=== PATIENT | male | born 1935 ===

== ENCOUNTER 2020-02-11 01:05 | Day surgery (SDC) | payer MEDICARE | END 2020-02-11 23:22 | disposition home or self-care (01) | LOC: WOUND 01:05 | DX: L97.222 Non-pressure chronic ulcer of left calf with fat layer exposed (principal); L58.9 Radiodermatitis, unspecified; I87.322 Chronic venous hypertension (idiopathic) with inflammation of left lower extremity; E78.5 Hyperlipidemia, unspecified; I25.10 Atherosclerotic heart disease of native coronary artery without angina pectoris; I11.0 Hypertensive heart disease with heart failure; I50.9 Heart failure, unspecified | CPT/HCPCS: G0463 ==

== ENCOUNTER 2020-03-06 00:05 | Day surgery (SDC) | payer MEDICARE | END 2020-03-06 22:50 | disposition home or self-care (01) | LOC: HBO 00:05 | DX: L58.9 Radiodermatitis, unspecified (principal); L59.8 Other specified disorders of the skin and subcutaneous tissue related to radiation; L97.222 Non-pressure chronic ulcer of left calf with fat layer exposed; I87.322 Chronic venous hypertension (idiopathic) with inflammation of left lower extremity | CPT/HCPCS: G0277 ==

== ENCOUNTER 2020-03-06 00:13 | Day surgery (SDC) | payer MEDICARE | END 2020-03-06 22:50 | disposition home or self-care (01) | LOC: WOUND 00:13 | DX: L97.222 Non-pressure chronic ulcer of left calf with fat layer exposed (principal); L59.8 Other specified disorders of the skin and subcutaneous tissue related to radiation; L58.9 Radiodermatitis, unspecified; I87.322 Chronic venous hypertension (idiopathic) with inflammation of left lower extremity ==

== ENCOUNTER 2020-03-09 00:22 | Day surgery (SDC) | payer MEDICARE | END 2020-03-09 23:01 | disposition home or self-care (01) | LOC: HBO 00:22 | DX: L59.8 Other specified disorders of the skin and subcutaneous tissue related to radiation (principal); L97.222 Non-pressure chronic ulcer of left calf with fat layer exposed; L58.9 Radiodermatitis, unspecified; I87.322 Chronic venous hypertension (idiopathic) with inflammation of left lower extremity | CPT/HCPCS: G0277 ==

== ENCOUNTER 2020-03-10 00:48 | Day surgery (SDC) | payer MEDICARE | END 2020-03-10 22:53 | disposition home or self-care (01) | LOC: HBO 00:48 | DX: L59.8 Other specified disorders of the skin and subcutaneous tissue related to radiation (principal); L97.222 Non-pressure chronic ulcer of left calf with fat layer exposed; L58.9 Radiodermatitis, unspecified; I87.322 Chronic venous hypertension (idiopathic) with inflammation of left lower extremity | CPT/HCPCS: G0277 ==

== ENCOUNTER 2020-03-17 00:12 | Day surgery (SDC) | payer MEDICARE | END 2020-03-17 23:12 | disposition home or self-care (01) | LOC: HBO 00:12 | DX: L59.8 Other specified disorders of the skin and subcutaneous tissue related to radiation (principal); L97.222 Non-pressure chronic ulcer of left calf with fat layer exposed; L58.9 Radiodermatitis, unspecified; I87.322 Chronic venous hypertension (idiopathic) with inflammation of left lower extremity | CPT/HCPCS: G0277 ==

== ENCOUNTER 2020-03-17 00:15 | Day surgery (SDC) | payer MEDICARE | END 2020-03-17 23:12 | disposition home or self-care (01) | LOC: WOUND 00:15 | DX: L59.8 Other specified disorders of the skin and subcutaneous tissue related to radiation (principal); L97.222 Non-pressure chronic ulcer of left calf with fat layer exposed; L58.9 Radiodermatitis, unspecified; I87.322 Chronic venous hypertension (idiopathic) with inflammation of left lower extremity; L97.922 Non-pressure chronic ulcer of unspecified part of left lower leg with fat layer exposed; I11.0 Hypertensive heart disease with heart failure; I50.9 Heart failure, unspecified; E78.5 Hyperlipidemia, unspecified ==

== ENCOUNTER 2020-03-18 00:33 | Day surgery (SDC) | payer MEDICARE | END 2020-03-18 23:39 | disposition home or self-care (01) | LOC: HBO 00:33 → WOUND 10:28 → HBO 10:29 | DX: L59.8 Other specified disorders of the skin and subcutaneous tissue related to radiation (principal); L97.222 Non-pressure chronic ulcer of left calf with fat layer exposed; L58.9 Radiodermatitis, unspecified; I87.322 Chronic venous hypertension (idiopathic) with inflammation of left lower extremity; L97.922 Non-pressure chronic ulcer of unspecified part of left lower leg with fat layer exposed | CPT/HCPCS: G0277 ==

== ENCOUNTER 2020-03-19 00:23 | Day surgery (SDC) | payer MEDICARE | END 2020-03-19 22:45 | disposition home or self-care (01) | LOC: HBO 00:23 | DX: L59.8 Other specified disorders of the skin and subcutaneous tissue related to radiation (principal); L97.222 Non-pressure chronic ulcer of left calf with fat layer exposed; L58.9 Radiodermatitis, unspecified; I87.322 Chronic venous hypertension (idiopathic) with inflammation of left lower extremity | CPT/HCPCS: G0277 ==

== ENCOUNTER 2020-03-20 00:15 | Day surgery (SDC) | payer MEDICARE | END 2020-03-20 22:54 | disposition home or self-care (01) | LOC: HBO 00:15 | DX: L59.8 Other specified disorders of the skin and subcutaneous tissue related to radiation (principal); L97.222 Non-pressure chronic ulcer of left calf with fat layer exposed; L58.9 Radiodermatitis, unspecified; I87.322 Chronic venous hypertension (idiopathic) with inflammation of left lower extremity | CPT/HCPCS: G0277 ==

== ENCOUNTER 2020-03-23 00:20 | Day surgery (SDC) | payer MEDICARE | END 2020-03-23 22:42 | disposition home or self-care (01) | LOC: HBO 00:20 | DX: L59.8 Other specified disorders of the skin and subcutaneous tissue related to radiation (principal); L97.222 Non-pressure chronic ulcer of left calf with fat layer exposed; I87.322 Chronic venous hypertension (idiopathic) with inflammation of left lower extremity; L97.922 Non-pressure chronic ulcer of unspecified part of left lower leg with fat layer exposed; L58.9 Radiodermatitis, unspecified | CPT/HCPCS: G0277 ==

== ENCOUNTER 2020-03-24 01:48 | Day surgery (SDC) | payer MEDICARE | END 2020-03-24 22:39 | disposition home or self-care (01) | LOC: HBO 01:48 | DX: L59.8 Other specified disorders of the skin and subcutaneous tissue related to radiation (principal); L97.222 Non-pressure chronic ulcer of left calf with fat layer exposed; L58.9 Radiodermatitis, unspecified; I87.322 Chronic venous hypertension (idiopathic) with inflammation of left lower extremity; L97.922 Non-pressure chronic ulcer of unspecified part of left lower leg with fat layer exposed | CPT/HCPCS: G0277 ==

== ENCOUNTER 2020-03-24 01:50 | Day surgery (SDC) | payer MEDICARE | END 2020-03-24 22:39 | disposition home or self-care (01) | LOC: WOUND 01:50 | DX: L59.8 Other specified disorders of the skin and subcutaneous tissue related to radiation (principal); L97.222 Non-pressure chronic ulcer of left calf with fat layer exposed; L58.9 Radiodermatitis, unspecified; I87.322 Chronic venous hypertension (idiopathic) with inflammation of left lower extremity; L97.922 Non-pressure chronic ulcer of unspecified part of left lower leg with fat layer exposed; I11.0 Hypertensive heart disease with heart failure; I50.9 Heart failure, unspecified; E78.5 Hyperlipidemia, unspecified ==

== ENCOUNTER 2020-03-25 00:38 | Day surgery (SDC) | payer MEDICARE | END 2020-03-25 22:44 | disposition home or self-care (01) | LOC: HBO 00:38 | DX: L59.8 Other specified disorders of the skin and subcutaneous tissue related to radiation (principal); L97.222 Non-pressure chronic ulcer of left calf with fat layer exposed; L58.9 Radiodermatitis, unspecified; I87.322 Chronic venous hypertension (idiopathic) with inflammation of left lower extremity; L97.922 Non-pressure chronic ulcer of unspecified part of left lower leg with fat layer exposed | CPT/HCPCS: G0277 ==

== ENCOUNTER 2020-03-26 00:11 | Day surgery (SDC) | payer MEDICARE | END 2020-03-26 23:12 | disposition home or self-care (01) | LOC: HBO 00:11 | DX: L59.8 Other specified disorders of the skin and subcutaneous tissue related to radiation (principal); L97.222 Non-pressure chronic ulcer of left calf with fat layer exposed; L58.9 Radiodermatitis, unspecified; I87.322 Chronic venous hypertension (idiopathic) with inflammation of left lower extremity; L97.922 Non-pressure chronic ulcer of unspecified part of left lower leg with fat layer exposed | CPT/HCPCS: G0277 ==

== ENCOUNTER 2020-03-27 00:13 | Day surgery (SDC) | payer MEDICARE | END 2020-03-27 22:43 | disposition home or self-care (01) | LOC: HBO 00:13 | DX: L59.8 Other specified disorders of the skin and subcutaneous tissue related to radiation (principal); L97.222 Non-pressure chronic ulcer of left calf with fat layer exposed; L58.9 Radiodermatitis, unspecified; I87.322 Chronic venous hypertension (idiopathic) with inflammation of left lower extremity; L97.922 Non-pressure chronic ulcer of unspecified part of left lower leg with fat layer exposed | CPT/HCPCS: G0277 ==

== ENCOUNTER 2020-03-31 14:00 | Day surgery (SDC) | payer MEDICARE | END 2020-04-01 22:41 | disposition home or self-care (01) | LOC: HBO 14:00 | DX: L59.8 Other specified disorders of the skin and subcutaneous tissue related to radiation (principal); L97.222 Non-pressure chronic ulcer of left calf with fat layer exposed; L58.9 Radiodermatitis, unspecified; I87.322 Chronic venous hypertension (idiopathic) with inflammation of left lower extremity; L97.922 Non-pressure chronic ulcer of unspecified part of left lower leg with fat layer exposed | CPT/HCPCS: G0277 ==

== ENCOUNTER 2020-04-02 00:19 | Day surgery (SDC) | payer MEDICARE | END 2020-04-02 22:38 | disposition home or self-care (01) | LOC: HBO 00:19 → WOUND 10:31 → HBO 10:34 | DX: L59.8 Other specified disorders of the skin and subcutaneous tissue related to radiation (principal); L97.222 Non-pressure chronic ulcer of left calf with fat layer exposed; L58.9 Radiodermatitis, unspecified; I87.322 Chronic venous hypertension (idiopathic) with inflammation of left lower extremity; L97.922 Non-pressure chronic ulcer of unspecified part of left lower leg with fat layer exposed | CPT/HCPCS: G0277 ==

== ENCOUNTER 2020-04-03 00:08 | Day surgery (SDC) | payer MEDICARE | END 2020-04-03 22:42 | disposition home or self-care (01) | LOC: WOUND 00:08 | DX: L59.8 Other specified disorders of the skin and subcutaneous tissue related to radiation (principal); L97.222 Non-pressure chronic ulcer of left calf with fat layer exposed; L58.9 Radiodermatitis, unspecified; I87.322 Chronic venous hypertension (idiopathic) with inflammation of left lower extremity; L97.922 Non-pressure chronic ulcer of unspecified part of left lower leg with fat layer exposed; I11.0 Hypertensive heart disease with heart failure; I50.9 Heart failure, unspecified; E78.5 Hyperlipidemia, unspecified; Z79.899 Other long term (current) drug therapy | CPT/HCPCS: G0463 ==

== ENCOUNTER 2020-04-03 00:24 | Day surgery (SDC) | payer MEDICARE | END 2020-04-03 22:42 | disposition home or self-care (01) | LOC: HBO 00:24 | DX: L59.8 Other specified disorders of the skin and subcutaneous tissue related to radiation (principal); L97.222 Non-pressure chronic ulcer of left calf with fat layer exposed; L97.922 Non-pressure chronic ulcer of unspecified part of left lower leg with fat layer exposed; L58.9 Radiodermatitis, unspecified; I87.322 Chronic venous hypertension (idiopathic) with inflammation of left lower extremity | CPT/HCPCS: G0277 ==

== ENCOUNTER 2020-04-06 00:31 | Day surgery (SDC) | payer MEDICARE | END 2020-04-06 22:53 | disposition home or self-care (01) | LOC: HBO 00:31 | DX: L59.8 Other specified disorders of the skin and subcutaneous tissue related to radiation (principal); L97.222 Non-pressure chronic ulcer of left calf with fat layer exposed; L58.9 Radiodermatitis, unspecified; I87.322 Chronic venous hypertension (idiopathic) with inflammation of left lower extremity; L97.922 Non-pressure chronic ulcer of unspecified part of left lower leg with fat layer exposed | CPT/HCPCS: G0277 ==

== ENCOUNTER 2020-04-07 00:17 | Day surgery (SDC) | payer MEDICARE | END 2020-04-07 22:45 | disposition home or self-care (01) | LOC: HBO 00:17 → WOUND 11:58 → HBO 11:59 | DX: L59.8 Other specified disorders of the skin and subcutaneous tissue related to radiation (principal); L97.222 Non-pressure chronic ulcer of left calf with fat layer exposed; L58.9 Radiodermatitis, unspecified; I87.322 Chronic venous hypertension (idiopathic) with inflammation of left lower extremity; L97.922 Non-pressure chronic ulcer of unspecified part of left lower leg with fat layer exposed | CPT/HCPCS: G0277 ==

== ENCOUNTER 2020-04-10 01:00 | Day surgery (SDC) | payer MEDICARE | END 2020-04-10 23:06 | disposition home or self-care (01) | LOC: HBO 01:00 → WOUND 09:32 → HBO 09:34 | DX: L59.8 Other specified disorders of the skin and subcutaneous tissue related to radiation (principal); L97.222 Non-pressure chronic ulcer of left calf with fat layer exposed; L58.9 Radiodermatitis, unspecified; I87.322 Chronic venous hypertension (idiopathic) with inflammation of left lower extremity; L97.922 Non-pressure chronic ulcer of unspecified part of left lower leg with fat layer exposed | CPT/HCPCS: G0277 ==

== ENCOUNTER 2020-04-14 00:38 | Day surgery (SDC) | payer MEDICARE | END 2020-04-14 22:44 | disposition home or self-care (01) | LOC: HBO 00:38 | DX: L59.8 Other specified disorders of the skin and subcutaneous tissue related to radiation (principal); L97.222 Non-pressure chronic ulcer of left calf with fat layer exposed; L58.9 Radiodermatitis, unspecified; I87.322 Chronic venous hypertension (idiopathic) with inflammation of left lower extremity; L97.922 Non-pressure chronic ulcer of unspecified part of left lower leg with fat layer exposed | CPT/HCPCS: G0277 ==

== ENCOUNTER 2020-04-14 00:40 | Day surgery (SDC) | payer MEDICARE | END 2020-04-14 22:44 | disposition home or self-care (01) | LOC: WOUND 00:40 | DX: L59.8 Other specified disorders of the skin and subcutaneous tissue related to radiation (principal); L97.222 Non-pressure chronic ulcer of left calf with fat layer exposed; L58.9 Radiodermatitis, unspecified; I87.322 Chronic venous hypertension (idiopathic) with inflammation of left lower extremity; L97.922 Non-pressure chronic ulcer of unspecified part of left lower leg with fat layer exposed; Z79.899 Other long term (current) drug therapy | CPT/HCPCS: G0463 ==

== ENCOUNTER 2020-04-16 00:35 | Day surgery (SDC) | payer MEDICARE | END 2020-04-16 22:46 | disposition home or self-care (01) | LOC: HBO 00:35 | DX: L59.8 Other specified disorders of the skin and subcutaneous tissue related to radiation (principal); L97.222 Non-pressure chronic ulcer of left calf with fat layer exposed; L58.9 Radiodermatitis, unspecified; I87.322 Chronic venous hypertension (idiopathic) with inflammation of left lower extremity; L97.922 Non-pressure chronic ulcer of unspecified part of left lower leg with fat layer exposed | CPT/HCPCS: G0277 ==

== ENCOUNTER 2020-04-17 00:48 | Day surgery (SDC) | payer MEDICARE | END 2020-04-17 12:00 | disposition home or self-care (01) | LOC: HBO 00:48 | DX: L59.8 Other specified disorders of the skin and subcutaneous tissue related to radiation (principal); L97.222 Non-pressure chronic ulcer of left calf with fat layer exposed; L58.9 Radiodermatitis, unspecified; I87.322 Chronic venous hypertension (idiopathic) with inflammation of left lower extremity; L97.922 Non-pressure chronic ulcer of unspecified part of left lower leg with fat layer exposed; Z79.899 Other long term (current) drug therapy | CPT/HCPCS: G0277 ==

== ENCOUNTER 2020-04-20 00:16 | Day surgery (SDC) | payer MEDICARE | END 2020-04-20 22:49 | disposition home or self-care (01) | LOC: HBO 00:16 | DX: L59.8 Other specified disorders of the skin and subcutaneous tissue related to radiation (principal); L97.222 Non-pressure chronic ulcer of left calf with fat layer exposed; L58.9 Radiodermatitis, unspecified; I87.322 Chronic venous hypertension (idiopathic) with inflammation of left lower extremity; L97.922 Non-pressure chronic ulcer of unspecified part of left lower leg with fat layer exposed; Z79.899 Other long term (current) drug therapy | CPT/HCPCS: G0277 ==

== ENCOUNTER 2020-04-21 00:11 | Day surgery (SDC) | payer MEDICARE | END 2020-04-21 22:40 | disposition home or self-care (01) | LOC: HBO 00:11 | DX: L59.8 Other specified disorders of the skin and subcutaneous tissue related to radiation (principal); L97.222 Non-pressure chronic ulcer of left calf with fat layer exposed; L58.9 Radiodermatitis, unspecified; I87.322 Chronic venous hypertension (idiopathic) with inflammation of left lower extremity; L97.922 Non-pressure chronic ulcer of unspecified part of left lower leg with fat layer exposed | CPT/HCPCS: G0277 ==

== ENCOUNTER 2020-04-21 00:13 | Day surgery (SDC) | payer MEDICARE | END 2020-04-21 22:40 | disposition home or self-care (01) | LOC: WOUND 00:13 | DX: L59.8 Other specified disorders of the skin and subcutaneous tissue related to radiation (principal); L97.222 Non-pressure chronic ulcer of left calf with fat layer exposed; L58.9 Radiodermatitis, unspecified; I87.322 Chronic venous hypertension (idiopathic) with inflammation of left lower extremity; L97.922 Non-pressure chronic ulcer of unspecified part of left lower leg with fat layer exposed | CPT/HCPCS: G0463 ==

== ENCOUNTER 2020-04-23 00:12 | Day surgery (SDC) | payer MEDICARE | END 2020-04-23 22:42 | disposition home or self-care (01) | LOC: HBO 00:12 → WOUND 11:59 → HBO 12:00 | DX: L59.8 Other specified disorders of the skin and subcutaneous tissue related to radiation (principal); L97.222 Non-pressure chronic ulcer of left calf with fat layer exposed; L97.922 Non-pressure chronic ulcer of unspecified part of left lower leg with fat layer exposed; L58.9 Radiodermatitis, unspecified; I87.322 Chronic venous hypertension (idiopathic) with inflammation of left lower extremity; Z92.3 Personal history of irradiation; Y84.2 Radiological procedure and radiotherapy as the cause of abnormal reaction of the patient, or of later complication, without mention of misadventure at the time of the procedure; Y78.8 Miscellaneous radiological devices associated with adverse incidents, not elsewhere classified | CPT/HCPCS: G0277 ==

== ENCOUNTER 2020-04-24 00:40 | Day surgery (SDC) | payer MEDICARE | END 2020-04-24 23:03 | disposition home or self-care (01) | LOC: HBO 00:40 | DX: L59.8 Other specified disorders of the skin and subcutaneous tissue related to radiation (principal); L97.222 Non-pressure chronic ulcer of left calf with fat layer exposed; L58.9 Radiodermatitis, unspecified; I87.322 Chronic venous hypertension (idiopathic) with inflammation of left lower extremity; L97.922 Non-pressure chronic ulcer of unspecified part of left lower leg with fat layer exposed; Y84.2 Radiological procedure and radiotherapy as the cause of abnormal reaction of the patient, or of later complication, without mention of misadventure at the time of the procedure; Y78.8 Miscellaneous radiological devices associated with adverse incidents, not elsewhere classified | CPT/HCPCS: G0277 ==

== ENCOUNTER 2020-04-27 00:25 | Day surgery (SDC) | payer MEDICARE | END 2020-04-27 23:05 | disposition home or self-care (01) | LOC: HBO 00:25 | DX: L59.8 Other specified disorders of the skin and subcutaneous tissue related to radiation (principal); L97.222 Non-pressure chronic ulcer of left calf with fat layer exposed; L97.922 Non-pressure chronic ulcer of unspecified part of left lower leg with fat layer exposed; I87.322 Chronic venous hypertension (idiopathic) with inflammation of left lower extremity; Z92.3 Personal history of irradiation; Y84.2 Radiological procedure and radiotherapy as the cause of abnormal reaction of the patient, or of later complication, without mention of misadventure at the time of the procedure; Y78.8 Miscellaneous radiological devices associated with adverse incidents, not elsewhere classified | CPT/HCPCS: G0277 ==

== ENCOUNTER 2020-04-28 05:29 | Day surgery (SDC) | payer MEDICARE | END 2020-04-28 23:03 | disposition home or self-care (01) | LOC: HBO 05:29 | DX: L59.8 Other specified disorders of the skin and subcutaneous tissue related to radiation (principal); L97.222 Non-pressure chronic ulcer of left calf with fat layer exposed; L97.922 Non-pressure chronic ulcer of unspecified part of left lower leg with fat layer exposed; I87.322 Chronic venous hypertension (idiopathic) with inflammation of left lower extremity; Z92.3 Personal history of irradiation; Y84.2 Radiological procedure and radiotherapy as the cause of abnormal reaction of the patient, or of later complication, without mention of misadventure at the time of the procedure; Y78.8 Miscellaneous radiological devices associated with adverse incidents, not elsewhere classified | CPT/HCPCS: G0277 ==

== ENCOUNTER 2020-04-30 00:45 | Day surgery (SDC) | payer MEDICARE | END 2020-04-30 22:54 | disposition home or self-care (01) | LOC: HBO 00:45 | DX: L59.8 Other specified disorders of the skin and subcutaneous tissue related to radiation (principal); L97.222 Non-pressure chronic ulcer of left calf with fat layer exposed; L58.9 Radiodermatitis, unspecified; I87.322 Chronic venous hypertension (idiopathic) with inflammation of left lower extremity; L97.922 Non-pressure chronic ulcer of unspecified part of left lower leg with fat layer exposed | CPT/HCPCS: G0277 ==

== ENCOUNTER 2020-05-01 01:57 | Day surgery (SDC) | payer MEDICARE | END 2020-05-01 22:38 | disposition home or self-care (01) | LOC: WOUND 01:57 | DX: L59.8 Other specified disorders of the skin and subcutaneous tissue related to radiation (principal); L97.222 Non-pressure chronic ulcer of left calf with fat layer exposed; L58.9 Radiodermatitis, unspecified; I87.322 Chronic venous hypertension (idiopathic) with inflammation of left lower extremity; L97.922 Non-pressure chronic ulcer of unspecified part of left lower leg with fat layer exposed; I11.0 Hypertensive heart disease with heart failure; I50.9 Heart failure, unspecified; E78.5 Hyperlipidemia, unspecified; Z79.899 Other long term (current) drug therapy ==

== ENCOUNTER 2020-05-01 02:01 | Day surgery (SDC) | payer MEDICARE | END 2020-05-01 22:38 | disposition home or self-care (01) | LOC: HBO 02:01 | DX: L59.8 Other specified disorders of the skin and subcutaneous tissue related to radiation (principal); L97.222 Non-pressure chronic ulcer of left calf with fat layer exposed; L58.9 Radiodermatitis, unspecified; I87.322 Chronic venous hypertension (idiopathic) with inflammation of left lower extremity; L97.922 Non-pressure chronic ulcer of unspecified part of left lower leg with fat layer exposed | CPT/HCPCS: G0277 ==

== ENCOUNTER 2020-05-04 00:26 | Day surgery (SDC) | payer MEDICARE | END 2020-05-04 22:40 | disposition home or self-care (01) | LOC: HBO 00:26 | DX: L59.8 Other specified disorders of the skin and subcutaneous tissue related to radiation (principal); L97.222 Non-pressure chronic ulcer of left calf with fat layer exposed; L58.9 Radiodermatitis, unspecified; I87.322 Chronic venous hypertension (idiopathic) with inflammation of left lower extremity; L97.922 Non-pressure chronic ulcer of unspecified part of left lower leg with fat layer exposed | CPT/HCPCS: G0277 ==

== ENCOUNTER 2020-05-05 00:49 | Day surgery (SDC) | payer MEDICARE | END 2020-05-05 23:22 | disposition home or self-care (01) | LOC: WOUND 00:49 | DX: L97.822 Non-pressure chronic ulcer of other part of left lower leg with fat layer exposed (principal); I87.322 Chronic venous hypertension (idiopathic) with inflammation of left lower extremity; L59.8 Other specified disorders of the skin and subcutaneous tissue related to radiation; L97.222 Non-pressure chronic ulcer of left calf with fat layer exposed; L58.9 Radiodermatitis, unspecified | CPT/HCPCS: G0463 ==

== ENCOUNTER 2020-05-05 01:04 | Day surgery (SDC) | payer MEDICARE | END 2020-05-05 23:22 | disposition home or self-care (01) | LOC: HBO 01:04 → WOUND 14:04 → HBO 14:07 | DX: L59.8 Other specified disorders of the skin and subcutaneous tissue related to radiation (principal); L97.222 Non-pressure chronic ulcer of left calf with fat layer exposed; L58.9 Radiodermatitis, unspecified; I87.322 Chronic venous hypertension (idiopathic) with inflammation of left lower extremity; L97.922 Non-pressure chronic ulcer of unspecified part of left lower leg with fat layer exposed | CPT/HCPCS: G0277 ==

== ENCOUNTER 2020-05-07 00:15 | Day surgery (SDC) | payer MEDICARE | END 2020-05-07 22:56 | disposition home or self-care (01) | LOC: HBO 00:15 → WOUND 15:25 → HBO 15:26 | DX: L59.8 Other specified disorders of the skin and subcutaneous tissue related to radiation (principal); L97.222 Non-pressure chronic ulcer of left calf with fat layer exposed; L58.9 Radiodermatitis, unspecified; I87.322 Chronic venous hypertension (idiopathic) with inflammation of left lower extremity; L97.922 Non-pressure chronic ulcer of unspecified part of left lower leg with fat layer exposed | CPT/HCPCS: G0277 ==

== ENCOUNTER 2020-05-08 01:57 | Day surgery (SDC) | payer MEDICARE | END 2020-05-08 22:44 | disposition home or self-care (01) | LOC: HBO 01:57 | DX: L59.8 Other specified disorders of the skin and subcutaneous tissue related to radiation (principal); L97.222 Non-pressure chronic ulcer of left calf with fat layer exposed; L58.9 Radiodermatitis, unspecified; I87.322 Chronic venous hypertension (idiopathic) with inflammation of left lower extremity; L97.922 Non-pressure chronic ulcer of unspecified part of left lower leg with fat layer exposed | CPT/HCPCS: G0277 ==

== ENCOUNTER 2020-05-11 00:41 | Day surgery (SDC) | payer MEDICARE | END 2020-05-11 22:42 | disposition home or self-care (01) | LOC: HBO 00:41 | DX: L59.8 Other specified disorders of the skin and subcutaneous tissue related to radiation (principal); L97.222 Non-pressure chronic ulcer of left calf with fat layer exposed; L58.9 Radiodermatitis, unspecified; I87.322 Chronic venous hypertension (idiopathic) with inflammation of left lower extremity; L97.922 Non-pressure chronic ulcer of unspecified part of left lower leg with fat layer exposed | CPT/HCPCS: G0277 ==

== ENCOUNTER 2020-05-12 00:40 | Day surgery (SDC) | payer MEDICARE | END 2020-05-12 22:48 | disposition home or self-care (01) | LOC: HBO 00:40 | DX: L59.8 Other specified disorders of the skin and subcutaneous tissue related to radiation (principal); L97.222 Non-pressure chronic ulcer of left calf with fat layer exposed; L58.9 Radiodermatitis, unspecified; I87.322 Chronic venous hypertension (idiopathic) with inflammation of left lower extremity; L97.922 Non-pressure chronic ulcer of unspecified part of left lower leg with fat layer exposed | CPT/HCPCS: G0277 ==

== ENCOUNTER 2020-05-12 00:44 | Day surgery (SDC) | payer MEDICARE | END 2020-05-12 22:48 | disposition home or self-care (01) | LOC: WOUND 00:44 | DX: L59.8 Other specified disorders of the skin and subcutaneous tissue related to radiation (principal); L58.9 Radiodermatitis, unspecified; I96 Gangrene, not elsewhere classified; L97.822 Non-pressure chronic ulcer of other part of left lower leg with fat layer exposed; C91.10 Chronic lymphocytic leukemia of B-cell type not having achieved remission; E78.5 Hyperlipidemia, unspecified; I25.10 Atherosclerotic heart disease of native coronary artery without angina pectoris; N40.0 Benign prostatic hyperplasia without lower urinary tract symptoms; I11.0 Hypertensive heart disease with heart failure; I50.9 Heart failure, unspecified; I87.302 Chronic venous hypertension (idiopathic) without complications of left lower extremity; D64.9 Anemia, unspecified; I89.0 Lymphedema, not elsewhere classified; G47.30 Sleep apnea, unspecified; I49.9 Cardiac arrhythmia, unspecified; M06.9 Rheumatoid arthritis, unspecified; M19.90 Unspecified osteoarthritis, unspecified site; Z92.21 Personal history of antineoplastic chemotherapy; Z85.828 Personal history of other malignant neoplasm of skin; Z85.46 Personal history of malignant neoplasm of prostate; Z95.2 Presence of prosthetic heart valve; Z79.899 Other long term (current) drug therapy; Z92.3 Personal history of irradiation; Y84.2 Radiological procedure and radiotherapy as the cause of abnormal reaction of the patient, or of later complication, without mention of misadventure at the time of the procedure; Y78.8 Miscellaneous radiological devices associated with adverse incidents, not elsewhere classified | CPT/HCPCS: G0463 ==

== ENCOUNTER 2020-05-13 00:36 | Day surgery (SDC) | payer MEDICARE | END 2020-05-13 22:47 | disposition home or self-care (01) | LOC: HBO 00:36 → WOUND 11:50 → HBO 11:52 | DX: L59.8 Other specified disorders of the skin and subcutaneous tissue related to radiation (principal); Z92.3 Personal history of irradiation; Y84.2 Radiological procedure and radiotherapy as the cause of abnormal reaction of the patient, or of later complication, without mention of misadventure at the time of the procedure; Y78.8 Miscellaneous radiological devices associated with adverse incidents, not elsewhere classified | CPT/HCPCS: G0277 ==

== ENCOUNTER 2020-05-14 00:44 | Day surgery (SDC) | payer MEDICARE | END 2020-05-14 12:00 | disposition home or self-care (01) | LOC: HBO 00:44 | DX: L59.8 Other specified disorders of the skin and subcutaneous tissue related to radiation (principal); L97.222 Non-pressure chronic ulcer of left calf with fat layer exposed; L58.9 Radiodermatitis, unspecified; I87.322 Chronic venous hypertension (idiopathic) with inflammation of left lower extremity; L97.922 Non-pressure chronic ulcer of unspecified part of left lower leg with fat layer exposed | CPT/HCPCS: G0277 ==

== ENCOUNTER 2020-05-15 02:11 | Day surgery (SDC) | payer MEDICARE | END 2020-05-15 23:06 | disposition home or self-care (01) | LOC: HBO 02:11 | DX: L59.8 Other specified disorders of the skin and subcutaneous tissue related to radiation (principal); L97.222 Non-pressure chronic ulcer of left calf with fat layer exposed; L58.9 Radiodermatitis, unspecified; L97.922 Non-pressure chronic ulcer of unspecified part of left lower leg with fat layer exposed; I87.322 Chronic venous hypertension (idiopathic) with inflammation of left lower extremity | CPT/HCPCS: G0277 ==

== ENCOUNTER 2020-05-18 00:13 | Day surgery (SDC) | payer MEDICARE | END 2020-05-18 12:00 | disposition home or self-care (01) | LOC: HBO 00:13 | DX: L59.8 Other specified disorders of the skin and subcutaneous tissue related to radiation (principal); L58.9 Radiodermatitis, unspecified; L97.222 Non-pressure chronic ulcer of left calf with fat layer exposed; L97.922 Non-pressure chronic ulcer of unspecified part of left lower leg with fat layer exposed; I87.322 Chronic venous hypertension (idiopathic) with inflammation of left lower extremity; Z92.3 Personal history of irradiation; Y84.2 Radiological procedure and radiotherapy as the cause of abnormal reaction of the patient, or of later complication, without mention of misadventure at the time of the procedure; Y78.8 Miscellaneous radiological devices associated with adverse incidents, not elsewhere classified | CPT/HCPCS: G0277 ==

== ENCOUNTER 2020-05-19 00:27 | Day surgery (SDC) | payer MEDICARE | END 2020-05-19 12:00 | disposition home or self-care (01) | LOC: WOUND 00:27 | DX: L59.8 Other specified disorders of the skin and subcutaneous tissue related to radiation (principal); I96 Gangrene, not elsewhere classified; L58.9 Radiodermatitis, unspecified; L97.922 Non-pressure chronic ulcer of unspecified part of left lower leg with fat layer exposed; I87.322 Chronic venous hypertension (idiopathic) with inflammation of left lower extremity; C44.92 Squamous cell carcinoma of skin, unspecified; C91.10 Chronic lymphocytic leukemia of B-cell type not having achieved remission; D64.9 Anemia, unspecified; I89.0 Lymphedema, not elsewhere classified; G47.30 Sleep apnea, unspecified; I49.9 Cardiac arrhythmia, unspecified; M06.9 Rheumatoid arthritis, unspecified; E78.5 Hyperlipidemia, unspecified; I25.10 Atherosclerotic heart disease of native coronary artery without angina pectoris; N40.0 Benign prostatic hyperplasia without lower urinary tract symptoms; I11.0 Hypertensive heart disease with heart failure; I50.9 Heart failure, unspecified; M19.90 Unspecified osteoarthritis, unspecified site; L97.222 Non-pressure chronic ulcer of left calf with fat layer exposed; Z79.899 Other long term (current) drug therapy; Z92.3 Personal history of irradiation; Z92.21 Personal history of antineoplastic chemotherapy; Z85.46 Personal history of malignant neoplasm of prostate; Z95.2 Presence of prosthetic heart valve; Y84.2 Radiological procedure and radiotherapy as the cause of abnormal reaction of the patient, or of later complication, without mention of misadventure at the time of the procedure; Y78.8 Miscellaneous radiological devices associated with adverse incidents, not elsewhere classified | CPT/HCPCS: G0463 ==

== ENCOUNTER 2020-05-19 00:29 | Day surgery (SDC) | payer MEDICARE | END 2020-05-19 12:00 | disposition home or self-care (01) | LOC: HBO 00:29 | DX: L59.8 Other specified disorders of the skin and subcutaneous tissue related to radiation (principal); L58.9 Radiodermatitis, unspecified; L97.222 Non-pressure chronic ulcer of left calf with fat layer exposed; L97.922 Non-pressure chronic ulcer of unspecified part of left lower leg with fat layer exposed; I87.322 Chronic venous hypertension (idiopathic) with inflammation of left lower extremity; Z92.3 Personal history of irradiation; Y84.2 Radiological procedure and radiotherapy as the cause of abnormal reaction of the patient, or of later complication, without mention of misadventure at the time of the procedure; Y78.8 Miscellaneous radiological devices associated with adverse incidents, not elsewhere classified | CPT/HCPCS: G0277 ==

== ENCOUNTER 2020-05-20 00:37 | Day surgery (SDC) | payer MEDICARE | END 2020-05-20 12:00 | disposition home or self-care (01) | LOC: HBO 00:37 | DX: L59.8 Other specified disorders of the skin and subcutaneous tissue related to radiation (principal); L58.9 Radiodermatitis, unspecified; L97.222 Non-pressure chronic ulcer of left calf with fat layer exposed; L97.922 Non-pressure chronic ulcer of unspecified part of left lower leg with fat layer exposed; I87.322 Chronic venous hypertension (idiopathic) with inflammation of left lower extremity; Z92.3 Personal history of irradiation; Y84.2 Radiological procedure and radiotherapy as the cause of abnormal reaction of the patient, or of later complication, without mention of misadventure at the time of the procedure; Y78.8 Miscellaneous radiological devices associated with adverse incidents, not elsewhere classified | CPT/HCPCS: G0277 ==

== ENCOUNTER 2020-05-21 00:07 | Day surgery (SDC) | payer MEDICARE | END 2020-05-21 23:19 | disposition home or self-care (01) | LOC: HBO 00:07 | DX: L59.8 Other specified disorders of the skin and subcutaneous tissue related to radiation (principal); L97.222 Non-pressure chronic ulcer of left calf with fat layer exposed; L58.9 Radiodermatitis, unspecified; I87.322 Chronic venous hypertension (idiopathic) with inflammation of left lower extremity; L97.922 Non-pressure chronic ulcer of unspecified part of left lower leg with fat layer exposed | CPT/HCPCS: G0277 ==

== ENCOUNTER 2020-05-22 01:12 | Day surgery (SDC) | payer MEDICARE | END 2020-05-22 23:00 | disposition home or self-care (01) | LOC: HBO 01:12 → WOUND 11:53 → HBO 12:38 | DX: L59.8 Other specified disorders of the skin and subcutaneous tissue related to radiation (principal); L97.222 Non-pressure chronic ulcer of left calf with fat layer exposed; L58.9 Radiodermatitis, unspecified; I87.322 Chronic venous hypertension (idiopathic) with inflammation of left lower extremity; L97.922 Non-pressure chronic ulcer of unspecified part of left lower leg with fat layer exposed | CPT/HCPCS: G0277 ==

== ENCOUNTER 2020-05-25 00:50 | Day surgery (SDC) | payer MEDICARE | END 2020-05-25 23:47 | disposition home or self-care (01) | LOC: HBO 00:50 | DX: L59.8 Other specified disorders of the skin and subcutaneous tissue related to radiation (principal); L97.222 Non-pressure chronic ulcer of left calf with fat layer exposed; L58.9 Radiodermatitis, unspecified; I87.322 Chronic venous hypertension (idiopathic) with inflammation of left lower extremity; L97.922 Non-pressure chronic ulcer of unspecified part of left lower leg with fat layer exposed | CPT/HCPCS: G0277 ==

== ENCOUNTER 2020-05-26 02:05 | Day surgery (SDC) | payer MEDICARE | END 2020-05-26 23:10 | disposition home or self-care (01) | LOC: HBO 02:05 | DX: L59.8 Other specified disorders of the skin and subcutaneous tissue related to radiation (principal); L97.222 Non-pressure chronic ulcer of left calf with fat layer exposed; L58.9 Radiodermatitis, unspecified; I87.322 Chronic venous hypertension (idiopathic) with inflammation of left lower extremity; L97.922 Non-pressure chronic ulcer of unspecified part of left lower leg with fat layer exposed | CPT/HCPCS: G0277 ==

== ENCOUNTER 2020-05-26 02:08 | Day surgery (SDC) | payer MEDICARE | END 2020-05-26 23:10 | disposition home or self-care (01) | LOC: WOUND 02:08 | DX: L59.8 Other specified disorders of the skin and subcutaneous tissue related to radiation (principal); L97.922 Non-pressure chronic ulcer of unspecified part of left lower leg with fat layer exposed; I96 Gangrene, not elsewhere classified; I87.322 Chronic venous hypertension (idiopathic) with inflammation of left lower extremity; D64.9 Anemia, unspecified; I89.0 Lymphedema, not elsewhere classified; G47.30 Sleep apnea, unspecified; I49.9 Cardiac arrhythmia, unspecified; M06.9 Rheumatoid arthritis, unspecified; M19.90 Unspecified osteoarthritis, unspecified site; L58.9 Radiodermatitis, unspecified; I25.10 Atherosclerotic heart disease of native coronary artery without angina pectoris; N40.0 Benign prostatic hyperplasia without lower urinary tract symptoms; I11.0 Hypertensive heart disease with heart failure; I50.9 Heart failure, unspecified; Z92.3 Personal history of irradiation; C91.10 Chronic lymphocytic leukemia of B-cell type not having achieved remission; E78.5 Hyperlipidemia, unspecified; Z79.899 Other long term (current) drug therapy; Z85.46 Personal history of malignant neoplasm of prostate; Z95.2 Presence of prosthetic heart valve; Y84.2 Radiological procedure and radiotherapy as the cause of abnormal reaction of the patient, or of later complication, without mention of misadventure at the time of the procedure; Y78.8 Miscellaneous radiological devices associated with adverse incidents, not elsewhere classified | CPT/HCPCS: G0463 ==

== ENCOUNTER 2020-05-27 03:15 | Day surgery (SDC) | payer MEDICARE | END 2020-05-27 23:26 | disposition home or self-care (01) | LOC: HBO 03:15 | DX: L59.8 Other specified disorders of the skin and subcutaneous tissue related to radiation (principal); L97.922 Non-pressure chronic ulcer of unspecified part of left lower leg with fat layer exposed; L58.9 Radiodermatitis, unspecified; I87.322 Chronic venous hypertension (idiopathic) with inflammation of left lower extremity; L97.222 Non-pressure chronic ulcer of left calf with fat layer exposed; Z92.3 Personal history of irradiation; Y84.2 Radiological procedure and radiotherapy as the cause of abnormal reaction of the patient, or of later complication, without mention of misadventure at the time of the procedure; Y78.8 Miscellaneous radiological devices associated with adverse incidents, not elsewhere classified | CPT/HCPCS: G0277 ==

== ENCOUNTER 2020-05-28 08:33 | Day surgery (SDC) | payer MEDICARE | END 2020-05-28 23:36 | disposition home or self-care (01) | LOC: HBO 08:33 | DX: L59.8 Other specified disorders of the skin and subcutaneous tissue related to radiation (principal); L97.922 Non-pressure chronic ulcer of unspecified part of left lower leg with fat layer exposed; I87.322 Chronic venous hypertension (idiopathic) with inflammation of left lower extremity; L97.222 Non-pressure chronic ulcer of left calf with fat layer exposed; L58.9 Radiodermatitis, unspecified; Z92.3 Personal history of irradiation; Y84.2 Radiological procedure and radiotherapy as the cause of abnormal reaction of the patient, or of later complication, without mention of misadventure at the time of the procedure; Y78.8 Miscellaneous radiological devices associated with adverse incidents, not elsewhere classified | CPT/HCPCS: G0277 ==

== ENCOUNTER 2020-05-29 00:48 | Day surgery (SDC) | payer MEDICARE | END 2020-05-29 23:13 | disposition home or self-care (01) | LOC: HBO 00:48 | DX: L59.8 Other specified disorders of the skin and subcutaneous tissue related to radiation (principal); L97.222 Non-pressure chronic ulcer of left calf with fat layer exposed; L58.9 Radiodermatitis, unspecified; I87.322 Chronic venous hypertension (idiopathic) with inflammation of left lower extremity; L97.922 Non-pressure chronic ulcer of unspecified part of left lower leg with fat layer exposed; Z79.899 Other long term (current) drug therapy | CPT/HCPCS: G0277 ==

== ENCOUNTER 2020-06-01 00:31 | Day surgery (SDC) | payer MEDICARE | END 2020-06-01 23:21 | disposition home or self-care (01) | LOC: HBO 00:31 | DX: L59.8 Other specified disorders of the skin and subcutaneous tissue related to radiation (principal); L97.222 Non-pressure chronic ulcer of left calf with fat layer exposed; L58.9 Radiodermatitis, unspecified; I87.322 Chronic venous hypertension (idiopathic) with inflammation of left lower extremity; L97.922 Non-pressure chronic ulcer of unspecified part of left lower leg with fat layer exposed | CPT/HCPCS: G0277 ==

== ENCOUNTER 2020-06-02 00:52 | Day surgery (SDC) | payer MEDICARE | END 2020-06-02 23:01 | disposition home or self-care (01) | LOC: HBO 00:52 | DX: L59.8 Other specified disorders of the skin and subcutaneous tissue related to radiation (principal); L97.222 Non-pressure chronic ulcer of left calf with fat layer exposed; L58.9 Radiodermatitis, unspecified; I87.322 Chronic venous hypertension (idiopathic) with inflammation of left lower extremity; L97.922 Non-pressure chronic ulcer of unspecified part of left lower leg with fat layer exposed | CPT/HCPCS: G0277 ==

== ENCOUNTER 2020-06-02 00:56 | Day surgery (SDC) | payer MEDICARE | END 2020-06-02 23:00 | disposition home or self-care (01) | LOC: WOUND 00:56 | DX: L59.8 Other specified disorders of the skin and subcutaneous tissue related to radiation (principal); I96 Gangrene, not elsewhere classified; L97.922 Non-pressure chronic ulcer of unspecified part of left lower leg with fat layer exposed; L58.9 Radiodermatitis, unspecified; I87.322 Chronic venous hypertension (idiopathic) with inflammation of left lower extremity; C91.10 Chronic lymphocytic leukemia of B-cell type not having achieved remission; I25.10 Atherosclerotic heart disease of native coronary artery without angina pectoris; E78.5 Hyperlipidemia, unspecified; I11.0 Hypertensive heart disease with heart failure; I50.9 Heart failure, unspecified; I89.0 Lymphedema, not elsewhere classified; G47.30 Sleep apnea, unspecified; I49.9 Cardiac arrhythmia, unspecified; M06.9 Rheumatoid arthritis, unspecified; M19.90 Unspecified osteoarthritis, unspecified site; Z92.3 Personal history of irradiation; Z79.899 Other long term (current) drug therapy; Z85.828 Personal history of other malignant neoplasm of skin; Z85.46 Personal history of malignant neoplasm of prostate; Z95.2 Presence of prosthetic heart valve; Z92.21 Personal history of antineoplastic chemotherapy; Y84.2 Radiological procedure and radiotherapy as the cause of abnormal reaction of the patient, or of later complication, without mention of misadventure at the time of the procedure; Y78.8 Miscellaneous radiological devices associated with adverse incidents, not elsewhere classified | CPT/HCPCS: G0463 ==

== ENCOUNTER 2020-06-03 02:08 | Day surgery (SDC) | payer MEDICARE | END 2020-06-03 23:19 | disposition home or self-care (01) | LOC: HBO 02:08 | DX: L59.8 Other specified disorders of the skin and subcutaneous tissue related to radiation (principal); L97.222 Non-pressure chronic ulcer of left calf with fat layer exposed; L58.9 Radiodermatitis, unspecified; I87.322 Chronic venous hypertension (idiopathic) with inflammation of left lower extremity; L97.922 Non-pressure chronic ulcer of unspecified part of left lower leg with fat layer exposed | CPT/HCPCS: G0277 ==

== ENCOUNTER 2020-06-04 00:16 | Day surgery (SDC) | payer MEDICARE | END 2020-06-04 23:16 | disposition home or self-care (01) | LOC: HBO 00:16 | DX: L59.8 Other specified disorders of the skin and subcutaneous tissue related to radiation (principal); L97.222 Non-pressure chronic ulcer of left calf with fat layer exposed; L97.922 Non-pressure chronic ulcer of unspecified part of left lower leg with fat layer exposed; L58.9 Radiodermatitis, unspecified; I87.322 Chronic venous hypertension (idiopathic) with inflammation of left lower extremity; Z92.3 Personal history of irradiation; Y84.2 Radiological procedure and radiotherapy as the cause of abnormal reaction of the patient, or of later complication, without mention of misadventure at the time of the procedure; Y78.8 Miscellaneous radiological devices associated with adverse incidents, not elsewhere classified | CPT/HCPCS: G0277 ==

== ENCOUNTER 2020-06-05 00:18 | Day surgery (SDC) | payer MEDICARE | END 2020-06-05 22:54 | disposition home or self-care (01) | LOC: HBO 00:18 | DX: L59.8 Other specified disorders of the skin and subcutaneous tissue related to radiation (principal); L97.222 Non-pressure chronic ulcer of left calf with fat layer exposed; L58.9 Radiodermatitis, unspecified; I87.322 Chronic venous hypertension (idiopathic) with inflammation of left lower extremity; L97.922 Non-pressure chronic ulcer of unspecified part of left lower leg with fat layer exposed; Z92.3 Personal history of irradiation; Y84.2 Radiological procedure and radiotherapy as the cause of abnormal reaction of the patient, or of later complication, without mention of misadventure at the time of the procedure; Y78.8 Miscellaneous radiological devices associated with adverse incidents, not elsewhere classified | CPT/HCPCS: G0277 ==